=== PATIENT | male | born 2000 | race Asian ===

== ENCOUNTER 2021-02-28 13:58 | Emergency (ER) | payer BC ==
[~2021-02-28] VITALS: Ht 165.1 cm; Wt 70.8 kg
[2021-02-28] MEDS ORDERED: PRED20TA PO (15:01)
[2021-02-28] MEDS ORDERED: ALBU0.63 NEB (15:01)
--- NOTE | 2021-02-28 16:01 | NUR ---
PT WAS EVALUATED BY DR DASH. PT WAS D/C'd TO HOME. D/C INSTRUCTIONS GIVEN TO THE PT BY DR DASH.
[2021-02-28 16:02] VITALS: BP 128/72
== END 2021-02-28 16:03 | disposition home or self-care (01) ==
LOC: ER 14:39
DX: J11.1 Influenza due to unidentified influenza virus with other respiratory manifestations (principal); J45.909 Unspecified asthma, uncomplicated
CPT/HCPCS: 71045; 93005; A4663